=== PATIENT | female | born 1955 | race Caucasian/White ===

== ENCOUNTER → 2016-07-09 | Outpatient (CLI) | payer MEDICARE ==
[~2016-07-09] MED LIST: 00186-0370-20 IH; ALBUTEROL0.83 MG/ML IH; AMBIEN 10MG10 MG PO; AMBIEN 5MG TABLE5 MG PO; AMITRIPTYLINE H50 M1 PO; ASPIRIN 32325 MG/TA1 PO; ASPIRIN 81M81 MG/TA2 PO; ASPIRIN E.C. 8181 MG PO; ATROVENT I0.2 MG/1 M IH; BROVANA15 MCG/2 M IH; CEFTIN500 MG PO; CILASTATIN IV; CORDARONE200 MG/TAB PO; DULCOLAX S10 MG/SUPP RC; EFFEXOR XR75 MG/CAP PO; FERROUS SU325 MG/TAB PO; IMIPENEM IV; IPRATROPIUM BROM3 M1 IH; KLONOPIN 1MG1 MG PO; KLOR-CON M2020 MEQ PO; LEVAQUIN 750MG750 M1 PO; LOPRESSOR 225 MG/TAB PO; LOPRESSOR 550 MG/TAB PO; LOVENOX 4040 MG/0.4 SQ; MUCINEX1200 MG PO; NICORETTE GUM2 MG PO; NORCO 325 MG-51 TAB PO; NORCO 325 MG-7.1 TAB PO; OMEGA-3 FISH1200 MG PO; PACERONE400 MG PO; PAXIL 20MG20 MG PO; PAXIL40 MG PO; PERFOROMIS20 MCG/2 M IH; PREDNISONE20 MG PO; PRILOSEC 20MG20 MG PO; PROAIR HFA0.09 MG/AC IH; PULMICORT0.5 MG/2 M IH; QVAR0.08 MG/AC IH; RT SPIRIVA18 MCG IH; SENOKOT S 50 MG1 TAB PO; SUPER B COMPLEX1 TA2 PO; SYNTHROID0.2 MG/TAB PO; TAPAZOLE5 MG PO; THEO-24 20200 MG/CAP PO; THEO-DUR 2200 MG/TAB PO; ULTRAM 50MG TAB50 MG PO; VITAMIN D31000 IU PO; ZOCOR 10MG10 MG PO; ZOCOR 20MG20 MG PO; [UNRECOGNIZED DRUG - OTHER] IV
== END ==
LOC: ZCOL.LAB 17:40
DX: Z01.89 Encounter for other specified special examinations (principal)

== ENCOUNTER → 2016-07-09 | Outpatient (CLI) | payer MEDICARE | LOC: ZCOL.LAB 16:09 | DX: Z53.9 Procedure and treatment not carried out, unspecified reason (principal) ==

== ENCOUNTER → 2017-05-26 | Outpatient (CLI) | payer MEDICARE | LOC: COL.LAB 10:02 | DX: Z01.812 Encounter for preprocedural laboratory examination (principal); Z86.14 Personal history of Methicillin resistant Staphylococcus aureus infection ==